=== PATIENT | female | born 1970 | race Caucasian/White ===

== ENCOUNTER 2022-12-25 03:00 | Outpatient (CLI) | payer SELFPAY ==
[2022-12-26 09:03] LABS: HBs Antibody, Quant <3.1 mIU/mL (See Note); Hepatitis B Surface Ab Negative (See Note)
[2022-12-26 11:39] LABS: Measles IgG Antibody Positive (See Note); Rubella IgG Ab (UVM) Positive (See Note); Varicella IgG Antibody Positive (See Note)
[2022-12-27 12:16] LABS: TB Interpretation Negative (Negative); TB2 Ag minus Nil 0.13 IU/mL
[2023-01-01 15:26] LABS: Index Value 0.11 (0.00-0.79); Mumps Ab, IgG Positive; Mumps Ab, IgM Negative (Negative)
== END 2022-12-25 03:01 | disposition home or self-care (01) ==
LOC: LBO 03:01
PROVIDERS: Visit Provider Family Medicine
DX: Z11.1 Encounter for screening for respiratory tuberculosis (principal); Z11.59 Encounter for screening for other viral diseases
CPT/HCPCS: 36415; 83735; 86706; 86735; 86787; 86480; 86762; 86765

== ENCOUNTER 2023-08-23 05:09 | Outpatient (CLI) | payer SELFPAY ==
[2023-08-23 07:19] LABS: Abs Immature Grans 0.02 10^3/uL (0.0-0.06); Absolute Basophil Count 0.06 10^3/uL (0.0-0.2); Absolute Eosinophil Count 0.27 10^3/uL (0.0-0.7); Absolute Lymphocyte Count 3.33 10^3/uL (1.2-3.4); Absolute Monocyte Count 0.52 10^3/uL (0.1-0.8); Absolute Neutrophil Count 6.11 10^3/uL (1.2-6.7); Basophils % 0.6 %; Eosinophils % 2.6 %; HCT 39.4 % (36.0-46.0); HGB 13.2 g/dL (11.2-15.7); Immature Grans % 0.2 %; Lymphocytes % 32.3 %; MCH 30.1 pg (27.0-33.0); MCHC 33.5 % (32.0-36.0); MCV 90 fL (80-95); MPV 8.8 fL (8.0-11.0); Neutrophils % 59.3 %; Platelet Count 377 10^3/uL (130-400); RBC 4.39 10^6/uL (3.93-5.22); RDW 12.7 % (11.7-14.6); WBC 10.31 10^3/uL (4.4-10.8)
[2023-08-23 08:30] LABS: ALT 30 U/L (14-59); AST 18 U/L (15-37); Albumin 3.7 g/dL (3.4-5.0); Alkaline Phosphatase 76 U/L (46-116); Anion Gap 11.6 mmol/L (3-11); BUN 13 mg/dL (7-18); Bilirubin, Total 0.5 mg/dL (0.2-1.0); CO2 26.4 mmol/L (21.0-32.0); CREATININE 0.6 mg/dL (0.55-1.02); Calculated LDL 132 mg/dL (<100); Chloride 103 mmol/L (98-107); Cholesterol 199 mg/dL (<200); Estimated GFR 109.28 (mL/min/1.73m2); Glucose 79 mg/dL (74-106); HDL Cholesterol 59 mg/dL (40-60); Potassium 3.9 mmol/L (3.5-5.1); Sodium 141 mmol/L (136-145); TSH (W/Ref FT4) 2.34 uIU/mL (0.36-3.74); Total Protein 8.1 g/dL (6.4-8.2); Triglyceride 41 mg/dL (<150)
== END 2023-08-23 05:10 | disposition home or self-care (01) ==
LOC: LBO 05:09
PROVIDERS: PCP Nurse Practitioner; Referring Provider Nurse Practitioner; Visit Provider Nurse Practitioner
DX: Z13.220 Encounter for screening for lipoid disorders (principal); K59.00 Constipation, unspecified; L70.9 Acne, unspecified
CPT/HCPCS: 36415; 80053; 80061; 84443; 85025

== ENCOUNTER 2023-09-23 18:33 | Outpatient (REF) | payer SELFPAY ==
--- NOTE | 2023-09-23 18:30 | PAPFT_PTH ---
PATIENT: Gabriela Houser LOC: [facility] [place] U#:[id number] AGE/SX: 53/F ROOM: RE09/23/[address]: Holly Loredo APRN : 1970 BED: DIS: 09/23/2023 SPEC #: [id number] RECD: 09/24/23 17:45 STATUS: LENNY REQ #: [id number] ENOC: 09/23/23 18:[address]: Holly Loredo DEPT: [facility] Cytology RECD BY: Amy Dunham Tissues: 1 - CX/ENDOCX FOR PAP SMEARS Procedures: PAP THIN PREP/UVM Screening HPV DNA PROBE Comments: [id number] (HPV 16 & 18/45)
== END 2023-09-23 18:34 | disposition home or self-care (01) ==
LOC: LBN 18:33
PROVIDERS: PCP Nurse Practitioner; Visit Provider Nurse Practitioner
DX: Z00.00 Encounter for general adult medical examination without abnormal findings (principal)
CPT/HCPCS: 88142; 87624

== ENCOUNTER 2024-07-03 00:03 | Outpatient (CLI) | payer OTHER, SELFPAY ==
--- NOTE | 2024-07-03 07:30 | DI.MAMMO_ITS ---
Exam(s) MAMMO SCREENING EXAM: MAMMO SCREENING CLINICAL HISTORY: screening,Z12.39. TECHNIQUE: Bilateral full field digital CC and MLO mammographic images were obtained with 3D tomosyn thesis and utilizing computer aided detection (CAD). COMPARISON: NONE FINDINGS: There are no CAD designations. There are no spiculated masses nor malignant appearing microcalcification groups. There is no significant architectural distortion nor skin thickening-retraction. IMPRESSION: No radiographic evidence of malignancy. BI-RADS Category 1 - Negative Breast Density - Category B - Scattered areas of fibroglandular density Breast density Category C or D implies that the patient has dense breast tissue. Dense breast tissue can make it harder to find cancer on a mammogram. Dense breast tissue is also associated with an incr eased risk of breast cancer. This information about the result of the mammogram report was provided to the patient to raise their awareness. Use this report when you speak with the patient about their risks for breast cancer, which includes their family history. At that time, you may recommend additional screening tests (Ultrasoun d or MRI) as these tests may add significant information. A negative radiographic report should not delay biopsy if a dominant or clinically suspicious mass is present. Up to ten percent of cancers are not identified on mammography. A negative report may reinforce clinical impression. Adenosis and dense breasts may obscure an underlying neoplasm. False positive reports average 6 to 10%. Patient will receive a letter notifying them of these results.
== END 2024-07-03 00:23 ==
LOC: DI 00:03
PROVIDERS: PCP Nurse Practitioner; Visit Provider Nurse Practitioner
DX: Z12.31 Encounter for screening mammogram for malignant neoplasm of breast (principal); R92.323 Mammographic fibroglandular density, bilateral breasts
CPT/HCPCS: 77063; 77067

== ENCOUNTER 2024-10-02 05:58 | Day surgery (SDC) | payer OTHER, SELFPAY ==
--- NOTE | 2024-10-01 16:58 | W.PM.DSUDISC ---
Date of service: 10/02/24 Discharge Plan Disposition Patient Disposition: Home Condition: Good Discharge Details Reason For Visit: screening colonoscopy Attending Provider: Cayetano Burdick Primary Care Provider: Kaden Mesa Home Meds and New Rx's Prescriptions: Continued metronidazole 0.75 % gel 1 applic topical QHS Qty: 45 3RF Discontinued bisacodyl [Dulcolax (bisacodyl)] 5 mg tablet,delayed release (DR/EC) 5 mg PO ONCE Qty: 4 0RF Rx Instructions: Take per colonoscopy instructions provided by ordering providers office polyethylene glycol 3350 17 gram/dose powder 17 g PO ONCE Qty: 238 0RF Rx Instructions: Take per colonoscopy instructions provided by ordering providers office Discharge Instructions Additional Instructions: Gabriela, It was very nice meeting you and your daughter today. I hope you make a quick recovery from the procedure. Things went very smoothly. Your prep was excellent, and I could see of the inside of your colon without any difficulty. Your colonoscopy today was totally normal. I recommend a follow-up screening colonoscopy in 10 years. If you need anything, or have any questions at all, please do not hesitate to ask at any time. 1. If tolerated, consume a soft, low fiber diet for 1-2 days. 2. Do not drive, drink alcohol, operate machinery, make critical decisions, or do activities that require coordination or balance for 24 hours. 3. Because air was put into your colon during the procedure, expelling air from your rectum (passing gas or farting) is normal. 4. You may not have a bowel movement for 1-3 days because of the colonoscopy prep. This is normal. 5. Go directly to the emergency room if you notice any of the following: Develop chills (warm to touch), or if you have a thermometer and your temperature is above 101 Difficulty breathing or difficultly swallowing Persistent vomiting Severe abdominal pain, other than gas cramps Severe chest pain Black, tarry stools Any bleeding ? exceeding one tablespoon 6. Call your physician if the site where your intravenous was started becomes red, swollen, painful, and warm to touch. 7. Your physician has reviewed your pre-procedure medications. Please continue to take those medications as previously ordered. You will be given specific information/education regarding any changes to your medications before leaving. Activity:: Activity as Tolerated Diet:: As Tolerated Discharge Orders Discharge Orders: Discharge Order (Routine); Ordered 10/01/24 Ordered By: Cayetano Burdick DS: Diagnosis Discharge Diagnosis (1) Encounter for screening colonoscopy: Status: Acute Asessment and Plan: Negative screening colonoscopy; 10-year follow-up
--- NOTE | 2024-10-01 16:59 | W.COLOREPORT ---
Date of service: 10/02/24 Time of Service: 07:58 Colonoscopy Report Date of procedure: 10/02/24 Pre-op diagnosis general: screening colonoscopy Post-op diagnosis procedure note: other (Negative screening colonoscopy) Procedure: colonoscopy Surgeon: Cayetano Burdick Anesthesia Type: General:No Airway Estimated blood loss (mL): 0 Pathology: none sent Complications: None Disposition: same day Indications: Gabriela is a 54 year old woman who needs a screening colonoscopy Prep: Miralax/Dulcolax Procedure Start Time: 07:34 Procedure End Time: 07:50 Retraction Time: 10 Findings: Negative screening colonoscopy Procedure Description: After the induction of anesthesia, and with the patient in left lateral decubitus position, I began by performing an external anorectal exam.? Perineum and skin were normal, as was the anal verge.? There are some redundant perianal skin consistent with old external hemorrhoids.? Next, I performed a digital rectal exam.? I did not appreciate any abnormal findings.? Next, I advanced a colonoscope into the rectal vault.? I performed retroflexion.? This appeared normal.? Using insufflation, I then advanced the colonoscope beyond the rectal folds and into the sigmoid colon before advancing towards the cecum.? The quality of the prep was outstanding.? The scope was noted to be in the cecum by identification of the ileocecal valve and appendiceal orifice.? I then began withdrawing the colonoscope using repeated irrigation as necessary for full evaluation of the colonic mucosa. ?Once the scope was withdrawn to the level of the rectum, great care was taken to examine portions of the rectal folds.? I saw no signs of tumors, polyps, or any other worrisome pathology. finally, the scope was withdrawn and the patient was brought to the same-day surgery recovery unit as the anesthetic wore off. ?The findings and instructions were shared with the patient prior to discharge. [place] Bowel Prep [place] Bowel Prep Right Colon: 3 Left Colon: 3 Transverse Colon: 3 Total Score: 9
[2024-10-02 06:06] VITALS: BP 101/73; PULSE 100; RESP 16; TEMP 36; O2SAT 98
[2024-10-02] MEDS: Lactated Ringers 1,000 ML 80 ML IV (07:17)
--- NOTE | 2024-10-02 07:27 | W.ANESPRE ---
General Info Date of Service Date Performed: 10/02/24 Height: 5 ft 0.5 in Weight: 68.492 kg Body Mass Index (BMI): 29.0 Surgical Procedure: Operation Date: 10/02/24 07:35 Proposed Procedure Side Surgeon p Gerardo Burdick MD Meds Allergies and Home Medications Allergies Allergy/AdvReac Type Severity Reaction Status Date / Time No Known Allergies Allergy Verified 10/02/24 06:24 Home Medication ?Medication ?Instructions ?Recorded metronidazole 0.75 % topical gel 1 applic topical QHS #45 grams 08/21/24 bisacodyl 5 mg tablet,delayed 5 mg PO ONCE #4 tabs 09/10/24 release (Dulcolax (bisacodyl)) polyethylene glycol 3350 17 17 g PO ONCE #238 grams 09/10/24 gram/dose oral powder Current Visit Medications: Current Medications Generic Name Dose Route Start Last Admin Trade Name Freq PRN Reason Stop Dose Admin Ringer's Solution 1,000 mls @ 80 mls/hr 10/02/24 06:00 10/02/24 07:17 IV 10/02/24 23:59 80 mls/hr INFUSION PETTY Administration IV Miscellaneous Supplies 1 each 10/02/24 06:00 Iv Access IV 10/02/24 23:59 DIRECTED PETTY Ondansetron HCl 4 mg 10/01/24 17:00 Ondansetron 4 Mg/2 Ml Vial IVP 10/31/24 16:59 Q4H PRN PRN Nausea / Vomiting Sodium Chloride 0 ml 10/02/24 06:00 Normal Saline Flush 10 Ml Syr IV 10/02/24 23:59 PRN PRN Sodium Chloride 0 ml 10/02/24 06:00 Normal Saline 10 Ml Vial IJ 10/02/24 23:59 DIRECTED PRN Sterile Water 0 ml 10/02/24 06:00 Water,Injection,Sterile 10 Ml Vial IJ 10/02/24 23:59 DIRECTED PRN PFSH Active Problems Active Problems: Problem Status Onset Code Encounter for screening colonoscopy Acute Z12.11 Rosacea Acute L71.9 Medical History Medical History High cholesterol Tobacco Smoking/Tobacco Use Status: Current-Occasional Tobacco Type: cigarettes Second hand exposure: No Alcohol Alcohol Intake: current Alcohol intake frequency: holidays/special occasions only Substance Use Substance use: Never Substance use type: does not use Counseling provided: none Vital Signs and Lab Results Vital Signs Most Recent Vital Signs in EMR: Most Recent Vital Signs Temp Pulse Resp BP Pulse Ox 36 C L 100 H 16 101/73 98 10/02/24 06:06 10/02/24 06:06 10/02/24 06:06 10/02/24 06:06 10/02/24 06:06 Anesthesia Assessment and Plan Anesthesia History Personal History: No History of General Anesthesia Family History: No Family History of Anesthesia Complications Exercise Tolerance Exercise Tolerance: Metabolic Equivalents<4 Pertinent Negatives Pertinent Negatives: No Symptoms of GERD Cardiac & Pulmonary Exam Cardiac Exam: Normal S1/S2 Heart Sounds Pulmonary Exam: Clear Bilateral Breath Sounds Implantable Cardiac Device Does patient have a Pacemaker or an ICD?: No Airway Exam Known Difficult Airway: No Mallampati Class: 2 Mouth Opening: Normal (> 3cm) Thyromental Distance: Greater than 3 cm Neck Range of Motion: Full ROM Neck Circumference: Normal Teeth Condition: Normal Dentition ASA Classification ASA Score: ASA 2 Emergency Case?: No NPO Status NPO Status: NPO Clears >2 hours, Solids >8 hours Status Status: Not Relevant due to Medical History Anesthesia Plan Resuscitation Status: Full Code Anesthesia Technique: General Anesthesia Airway Planned: Natural Airway Monitors Used: Standard Monitors
[2024-10-02 07:28] VITALS: BMI 29.0
[2024-10-02 07:55] VITALS: BP 86/59; PULSE 85; RESP 14; TEMP 36.1; O2SAT 97
--- NOTE | 2024-10-02 08:06 | W.ANESPOSTOP ---
Postoperative Evaluation Date, Time and Location Date Performed: 10/02/24 Time Performed: 08:06 Patient Location: Day Surgery Unit Vital Signs Most Recent Imported Vital Signs: Most Recent Vital Signs Temp Pulse Resp BP Pulse Ox 36 C L 100 H 16 101/73 98 10/02/24 06:06 10/02/24 06:06 10/02/24 06:06 10/02/24 06:06 10/02/24 06:06 Pain Score Most Recent Pain Score: Most Recent Pain Score Pain Level 0 10/02/24 06:06 Assessment Mental Status: Awake (Alert & Oriented to Patient Baseline) Airway and Respiratory Function: Patent airway with normal (patient baseline) respiratory exam Cardiovascular Function: Hemodynamically Stable Hydration Status: Adequately Hydrated Nausea & Vomiting: No Nausea or Vomiting Pain: Pt. Denies Any Pain Peripheral Nerve Block: Patient did not receive a nerve block
[2024-10-02 08:29] VITALS: BP 104/76; PULSE 83; RESP 18; TEMP 36.1; O2SAT 97
== END 2024-10-02 08:40 | disposition home or self-care (01) ==
LOC: SUR 05:59
PROVIDERS: PCP Family Medicine; Visit Provider Surgery
PROC: 0DJD8ZZ Inspection of Lower Intestinal Tract, Via Natural or Artificial Opening Endoscopic (ICD-10-PCS; CPT 45378; principal; 2024-10-02 07:30)
DX: Z12.11 Encounter for screening for malignant neoplasm of colon (principal)
CPT/HCPCS: 45378; J2003; J2704